=== PATIENT | female | born 1955 | race African-American/Black ===

== ENCOUNTER 2019-06-29 19:05 | Emergency (ER) | payer MEDICARE, OTHER ==
[2019-06-29] MEDS ORDERED: Lorazepam 2 MG/ML VIAL ONE (19:46)
[2019-06-29] MEDS ORDERED: Dexamethasone 4 mg/ml Vial ONE (19:46)
[2019-06-29] MEDS ORDERED: Ketorolac Tromethamine 30 MG/ML VIAL ONE (19:46)
--- NOTE | 2019-06-29 20:10 | CT ---
CT lumbar spine noncontrast: DATE: 06/29/2019 HISTORY: 64-year-old female with subacute on chronic low back pain after fall 2 weeks ago. Right lumbar radicu lopathy. COMPARISON: None FINDINGS: 5 lumbar-type vertebrae. Vertebral body heights are maintained. No acute fracture lucency identified. No retroperitoneal or perivertebral space hematoma. T12-L1: Mild disc bulge/osteophytic bar complex. No high-grade central or neural foraminal stenosis. L1-2: Mild disc bulge best osteophytic bar complex. Ligamentum flavum thickening. Mild to moderate ce ntral stenosis. Moderate bilateral neural foraminal stenosis. L2-3: Diffuse disc bulge. Moderate ligamentum flavum thickening. Moderate to severe bilateral facet D ORTIZ. Severe central spinal canal stenosis. Mild to moderate bilateral neural foraminal stenosis. L3-4: Moderate ligamentum flavum thickening. Severe bilateral facet DJD. Diffuse disc bulge. Very sev ere central spinal canal stenosis. Moderate bilateral neural foraminal stenosis, left worse than right, due to left lateral and far lateral broad-based disc herniation. L4-5: Moderate disc space narrowing. Moderate disc bulge. Severe right neural foraminal stenosis. Mod erate left neural foraminal stenosis. Moderate ligamentum flavum thickening. Moderate right facet DJD. Somewhat severe central spinal canal stenosis, high-grade lateral recess stenosis bilaterally. L5-S1: Mild disc space narrowing. Diffuse disc bulge. Severe right neural foraminal stenosis. Moderat e left neural foraminal stenosis. Somewhat severe central spinal canal stenosis. Unilateral left L5 pars interarticularis defect. No anterolisthesis of L5 on S1. IMPRESSION: 1. No compression fracture. 2. Lumbar spondylosis, including multilevel mild and moderate degenerative disc disease, and facet os teoarthrosis of varying degrees. 3. Several levels of severe neural foraminal stenosis and severe central spinal canal stenosis. 4. Unilateral left L5 spondylolysis without spondylolisthesis.
--- NOTE | 2019-06-29 20:14 | CT ---
CT pelvis noncontrast: HISTORY: Nontraumatic right hip pain FINDINGS: Diffuse osteopenia. Loco's type dynamic compression screw in left proximal femur. No free fluid wi thin pelvic cavity. Heterogeneous mild and moderate bilateral hip joint space narrowing. Moderate acetabular osteophytosis. Mild bilateral subcapital osteophytosis. Femoral head contours are maintain ed without collapse. Moderate degenerative changes at symphysis pubis. IMPRESSION: 1. Moderate osteoarthrosis of bilateral hips. 2. Dynamic compression screw for old left proximal femoral fracture. 3. No acute fracture. 4. Osteopenia.
[2019-06-29] MEDS ORDERED: Fentanyl 100 MCG/2 ML VIAL ONE (20:22)
[2019-06-29] MEDS ORDERED: Diazepam 10 MG/2 ML SYRINGE ONE (20:47)
[2019-06-29] MEDS ORDERED: HYDROcodone/Acetaminophen 5/325 mg Tablet ONE (21:42)
== END 2019-06-29 22:19 | disposition home or self-care (01) ==
LOC: ERS 19:05
DX: M51.16 Intervertebral disc disorders with radiculopathy, lumbar region (principal); I10 Essential (primary) hypertension; F41.9 Anxiety disorder, unspecified
CPT/HCPCS: 72131; 72192; 96361; 96374; 96375; J1100; J1885; J2060; J3010; J3360

== ENCOUNTER 2019-07-17 08:50 | Outpatient (CLI) | payer MEDICARE ==
--- NOTE | 2019-07-17 10:48 | RAD ---
LUMBAR SPINE SERIES WITH FLEXION AND EXTENSION: Date: 07/17/2019 HISTORY: Back pain and pain running down right leg. FINDINGS: Vertebral bodies are normal in height. There is severe disc narrowing at L4-5. There is moderate disc narrowing at L3-4 and mild disc narrowing at L5-S1. There is very limited motion in flexion or exten cam[place]. No abnormal motion detected. Degenerative facet changes are present. IMPRESSION: Marked arthritic changes of the lower lumbar spine. POS: JOVANY
== END 2019-07-17 08:51 | disposition home or self-care (01) ==
LOC: TBSIIMAG 08:50
PROVIDERS: ATTEND Neurological Surgery
DX: M54.16 Radiculopathy, lumbar region (principal); M46.96 Unspecified inflammatory spondylopathy, lumbar region
CPT/HCPCS: 72120